=== PATIENT | female | born 1975 | race Two or more races ===

== ENCOUNTER 2016-04-21 16:48 | Emergency (ER) | payer SELFPAY ==
[2015-01-02 21:34] VITALS: BP 130/74
== END 2016-04-21 19:10 | disposition left against medical advice (07) ==
LOC: ER 16:48
DX: R10.9 Unspecified abdominal pain (principal); Z53.21 Procedure and treatment not carried out due to patient leaving prior to being seen by health care provider

== ENCOUNTER 2016-05-03 14:03 | Emergency (ER) | payer SELFPAY ==
[~2016-05-03] VITALS: Ht 152.4 cm; Wt 117.9 kg
[2016-05-03 14:05] VITALS: BP 147/87
[2016-05-03] MEDS ORDERED: D-ME118S2 PO (14:37)
[2016-05-03] MEDS ORDERED: PROAIR HFA8.5 GM INH (14:37)
--- NOTE | 2016-05-03 14:37 | PHYS DOC ---
Past Medical History Past Medical History: No Pertinent History Past Surgical History: No Surgical History Alcohol Use: None Drug Use: None Adult General Chief Complaint Chief Complaint: COUGH HPI HPI Patient is a 41 year old female presents emergency room with complaints of a harsh, nonproductive cough and nasal irritation for approximately one week. Patient does not have any history of cardiopulmonary disease. She has not been on antibiotics, hospitalization or foreign travel within the last 90 days. There 's been no reported ill contacts with similar symptoms. Patient denies fevers or chills. Patient denies myalgias or arthralgias. Review of Systems Review of Systems Constitutional: Denies fever or chills [] Eyes: Denies change in visual acuity, redness, or eye pain [] HENT: Denies nasal congestion or sore throat [] Respiratory: Denies cough or shortness of breath [] Cardiovascular: No additional information not addressed in HPI [] GI: Denies abdominal pain, nausea, vomiting, bloody stools or diarrhea [] : Denies dysuria or hematuria [] Musculoskeletal: Denies back pain or joint pain [] Integument: Denies rash or skin lesions [] Neurologic: Denies headache, focal weakness or sensory changes [] Endocrine: Denies polyuria or polydipsia [] Allergies Allergies Allergies Coded Allergies Type Severity Reaction Last Updated Verified No Known Drug Allergies 01/02/15 No Physical Exam Physical Exam Constitutional: Well developed, well nourished, no acute distress, non-toxic appearance. [] HENT: Normocephalic, atraumatic, bilateral external ears normal, oropharynx moist, no oral exudates, scant amount of clear rhinorrhea bilaterally. There is no hot potato speech or trismus. Posterior oropharynx is normal in appearance. Eyes: PERRLA, EOMI, conjunctiva normal, no discharge. [] Neck: Normal range of motion, no tenderness, supple, no stridor. There is no meningismus. There is bilateral anterior and posterior cervical lymphadenopathy. Cardiovascular:Heart rate regular rhythm, no murmur [] Lungs & Thorax: Bilateral breath sounds clear to auscultation [] Abdomen: Bowel sounds normal, soft, no tenderness, no masses, no pulsatile masses. [] Skin: Warm, dry, no erythema, no rash. Back: No tenderness, no CVA tenderness. [] Extremities: No tenderness, no cyanosis, no clubbing, ROM intact, no edema. [] Neurologic: Alert and oriented X 3, normal motor function, normal sensory function, no focal deficits noted. [] Psychologic: Affect normal, judgement normal, mood normal. [] Current Patient Data Vital Signs Vital Signs Date Time Temp Pulse Resp B/P Pulse Ox O2 Delivery O2 Flow Rate FiO2 05/03/16 14:05 98.0 87 18 95 Room Air 98.0 EKG EKG [] Radiology/Procedures Radiology/Procedures [] Course & Med Decision Making Course & Med Decision Making Pertinent Labs and Imaging studies reviewed. (See chart for details) [] Dragon Disclaimer Dragon Disclaimer This electronic medical record was generated, in whole or in part, using a voice recognition dictation system. Departure Departure Impression: Primary Impression: Upper respiratory infection Disposition: HOME, SELF-CARE Condition: GOOD Referrals: NO PCP (PCP) Patient Instructions: Upper Respiratory Infection, Adult, [id number] Additional Instructions: 1. Take the medications prescribed. 2. Review the discharge instructions for self-care and reasons to return the emergency department. 3. Use the pamphlet provided for assistance in finding a primary care doctor to address your medical concerns. Scripts Albuterol Sulfate (Proair Hfa Inhaler)8.5 Gm Hfa.aer.ad1 Puff INH PRN Q6HRS PRN SHORTNESS OF BREATH #1 INHALER Ref 0 Prov:SOBEIDA MARCIAL 05/03/16 D-Methorphan Hb/Prometh Hcl (Promethazine-Dm Syrup)118 Ml Syrup5 Ml PO PRN Q6HRS COUGH #120 ML Prov:SOBEIDA MARCIAL 05/03/16 SOBEIDA MARCIAL May 03, 2016 14:37
== END 2016-05-03 14:45 | disposition home or self-care (01) ==
LOC: ER 14:03
DX: J06.9 Acute upper respiratory infection, unspecified (principal)
CPT/HCPCS: 99283

== ENCOUNTER 2017-07-10 14:38 | Emergency (ER) | payer SELFPAY ==
[2017-07-10 15:15] LABS: URINE HCG POC HCG NEGATIVE (Negative)
[2017-07-10 15:16] LABS: ADD MAN DIFF? NO
[2017-07-10 15:26] LABS: BASO % 1 % (0-3); EOS # 0.2 x10^3/uL (0.0-0.7); EOS % 3 % (0-3); HEMATOCRIT 40.2 % (36.0-47.0); LYMPH # 2.3 x10^3/uL (1.0-4.8); LYMPH % 31 % (24-48); MEAN CORPUSCULAR HEMOGLOBIN 28 pg (25-35); MEAN CORPUSCULAR HGB CONC 32 g/dL (31-37); MEAN CORPUSCULAR VOLUME 85 fL (79-100); MONO # 0.3 x10^3/uL (0.0-1.1); MONO % 4 % (0-9); NEUT # 4.5 x10^3uL (1.8-7.7); NEUT % 61 % (31-73); PLATELET COUNT 349 x10^3/uL (140-400); RED BLOOD COUNT 4.73 x10^6/uL (3.50-5.40); RED CELL DISTRIBUTION WIDTH 13.9 % (11.5-14.5); WHITE BLOOD COUNT 7.4 x10^3/uL (4.0-11.0)
[2017-07-10 15:34] LABS: ANION GAP 11 (6-14); BLOOD UREA NITROGEN 10 mg/dL (7-20); CALCIUM 8.5 mg/dL (8.5-10.1); CARBON DIOXIDE 26 mmol/L (21-32); CHLORIDE 105 mmol/L (98-107); CREATININE 0.8 mg/dL (0.6-1.0); GLUCOSE 130 mg/dL (70-99); POTASSIUM 3.5 mmol/L (3.5-5.1); SODIUM 142 mmol/L (136-145)
[2017-07-10 15:40] LABS: ALBUMIN 3.2 g/dL (3.4-5.0); ALK PHOS 58 U/L (46-116); ALT (SGPT) 24 U/L (14-59); AST (SGOT) 20 U/L (15-37); DIRECT BILIRUBIN < 0.1 mg/dL (0.0-0.2); LIPASE 109 U/L (73-393); TOTAL BILIRUBIN 0.4 mg/dL (0.2-1.0); TOTAL PROTEIN 7.6 g/dL (6.4-8.2)
[2017-07-10 15:43] LABS: D-DIMER < 0.27 ug/mlFEU (0.00-0.50); TROPONINI < 0.017 ng/mL (0.000-0.055)
[2017-07-10 15:50] LABS: INR 1.1 (0.8-1.1); PARTIAL THROMBOPLASTIN TIME 30 SEC (24-38); PROTHROMBIN TIME PATIENT 13.4 SEC (11.7-14.0)
[2017-07-10 17:46] LABS: TROPONINI < 0.017 ng/mL (0.000-0.055)
== END 2017-07-10 18:30 | disposition home or self-care (01) ==
LOC: ER 14:38
DX: R07.89 Other chest pain (principal)
CPT/HCPCS: 36415; 71045; 80048; 80076; 81025; 83690; 84484; 85025; 85379; 85610; 85730; 93005; 99285-25

== ENCOUNTER 2018-07-19 12:38 | Emergency (ER) | payer SELFPAY ==
[2017-07-10 17:00] VITALS: BP 140/90
[~2018-07-19 12:38] MED LIST: ALBU2.5V8 INH; ASPI-482 PO; D-ME118S2 PO
== END 2018-07-19 13:51 | disposition left against medical advice (07) ==
LOC: ER 12:38
DX: Z53.21 Procedure and treatment not carried out due to patient leaving prior to being seen by health care provider (principal)

== ENCOUNTER 2018-08-28 09:51 | Emergency (ER) | payer SELFPAY ==
[~2018-08-28] VITALS: Ht 167.6 cm; Wt 90.7 kg
[2018-08-28 10:07] VITALS: BP 139/82
--- NOTE | 2018-08-28 10:40 | RAD ---
Two-view chest dated 08/28/2018. Comparison made to 07/10/2017. Clinical data indication: Cough and chest pain. FINDINGS:. PA and lateral views the chest were obtained. Heart and mediastinal contours within normal limits. Lungs are clear. No consolidation or pleural effusion. No pneumothorax. IMPRESSION: No acute radiographic abnormality. Electronically signed by: Manav Enriquez MD (08/28/2018 10:37 AM) [id number]
[2018-08-28] MEDS ORDERED: PRED50TA PO (10:49)
[2018-08-28] MEDS ORDERED: PROVENTIL HFA6.7 G2 INH (10:49)
[2018-08-28] MEDS ORDERED: BENZ100C PO (10:49)
--- NOTE | 2018-08-28 10:50 | PHYS DOC ---
Past Medical History Past Medical History: No Pertinent History (EDWARD DE LEÓN APRN) Past Surgical History: No Surgical History (EDWARD DE LEÓN APRN) Alcohol Use: None Drug Use: None (EDWARD DE LEÓN APRN) Adult General Chief Complaint Chief Complaint: COUGH HPI HPI Patient is a 43 year old female who presents with a productive cough for 2 weeks. Denies any fever. Denies any nasal congestion. Patient is Chukese speaking and interpretation is provided by the family member (EDWARD DE LEÓN APRN) Review of Systems Review of Systems Constitutional: Denies fever or chills [] Eyes: Denies change in visual acuity, redness, or eye pain [] HENT: Denies nasal congestion or sore throat [] Respiratory: Reports cough, denies shortness of breath [] Cardiovascular: No additional information not addressed in HPI [] GI: Denies abdominal pain, nausea, vomiting, bloody stools or diarrhea [] : Denies dysuria or hematuria [] Musculoskeletal: Denies back pain or joint pain [] Integument: Denies rash or skin lesions [] Neurologic: Denies headache, focal weakness or sensory changes [] All other systems were reviewed and found to be within normal limits, except as documented in this note. (MIEDWARD VALDEZ APRN) Allergies Allergies Allergies Coded Allergies Type Severity Reaction Last Updated Verified No Known Drug Allergies 01/02/15 No (CARLOS SEVILLA DO) Physical Exam Physical Exam Constitutional: Well developed, well nourished, no acute distress, non-toxic appearance. [] HENT: Normocephalic, atraumatic, bilateral external ears normal, oropharynx moist, no oral exudates, nose normal. [] Eyes: PERRLA, EOMI, conjunctiva normal, no discharge. [] Neck: Normal range of motion, no tenderness, supple, no stridor. [] Cardiovascular:Heart rate regular rhythm, no murmur [] Lungs & Thorax: Bilateral breath sounds clear to auscultation [] Abdomen: Bowel sounds normal, soft, no tenderness, no masses, no pulsatile masses. [] Skin: Warm, dry, no erythema, no rash. [] Back: No tenderness, no CVA tenderness. [] Extremities: No tenderness, no cyanosis, no clubbing, ROM intact, no edema. [] Neurologic: Alert and oriented X 3, normal motor function, normal sensory function, no focal deficits noted. [] Psychologic: Affect normal, judgement normal, mood normal. [] (EDWARD DE LEÓN APRN) Current Patient Data Vital Signs Vital Signs Date Time Temp Pulse Resp B/P (MAP) Pulse Ox O2 Delivery O2 Flow Rate FiO2 08/28/18 10:07 97.8 74 14 139/82 (101) 94 Room Air 97.8 (CARLOS SEVILLA DO) EKG EKG [] (EDWARD DE LEÓN APRN) Radiology/Procedures Radiology/Procedures []PROCEDURE: CHEST PA & LATERAL Two-view chest dated 08/28/2018. Comparison made to 07/10/2017. Clinical data indication: Cough and chest pain. FINDINGS:. PA and lateral views the chest were obtained. Heart and mediastinal contours within normal limits. Lungs are clear. No consolidation or pleural effusion. No pneumothorax. IMPRESSION: No acute radiographic abnormality. Electronically signed by: Carlos Enriquez MD (08/28/2018 10:37 AM) [id number] DICTATED and SIGNED BY: CARLOS ENRIQUEZ MD DATE: 08/28/18 1037 (EDWARD DE LEÓN APRN) Course & Med Decision Making Course & Med Decision Making Pertinent Labs and Imaging studies reviewed. (See chart for details) This is a 43-year-old female patient presenting to the ED today with cough for 2 weeks. Chest x-ray is negative for any acute findings as interpreted by radiologist. Symptoms are likely viral. Patient was discharged with albuterol inhaler prednisone and Tessalon Perles. Instructed to follow-up with her own PCP in 1-2 weeks. (EDWARD DE LEÓN APRN) Dragon Disclaimer Dragon Disclaimer This electronic medical record was generated, in whole or in part, using a voice recognition dictation system. (EDWARD DE LEÓN APRN) Departure Departure Impression: Primary Impression: Acute viral bronchitis Disposition: 01 HOME, SELF-CARE Condition: STABLE Referrals: NO PCP (PCP) Follow-up with your doctor in 1-2 weeks Patient Instructions: Acute Bronchitis, [id number] Additional Instructions: You were evaluated in the emergency room with symptoms consistent of viral bronchitis put you on medications, take them as prescribed. Please follow-up with your own doctor in 1-2 weeks. Scripts Prednisone (PREDNISONE) 50 Mg Tablet 1 TAB PO DAILY, #5 TAB Prov: EDWARD DE LEÓN APRN 08/28/18 Benzonatate (TESSALON PERLE) 100 Mg Capsule 1 CAP PO TID, #30 CAP Prov: EDWARD DE LEÓN APRN 08/28/18 Albuterol Sulfate (Proventil Hfa) 6.7 Gm Hfa.aer.ad 1 PUFF INH PRN Q6HRS PRN for SHORTNESS OF BREATH, #1 INHALER Prov: EDWARD DE LEÓN APRN 08/28/18 Attending Signature Attending Signature I have reviewed the PA/ASBESTOS SHINGLE ROOFER's note and plan of care. I was available for consultation as needed during the patient's visit in the emergency department. I agree with the clinical impression, plan, and disposition. (CARLOS SEVILLA DO) EDWARD DE LEÓN APRN August 28, 2018 10:50 CARLOS SEVILLA DO August 29, 2018 13:01
== END 2018-08-28 10:57 | disposition home or self-care (01) ==
LOC: ER 09:51
DX: J20.8 Acute bronchitis due to other specified organisms (principal)
CPT/HCPCS: 71046; 99284

== ENCOUNTER 2019-05-05 22:06 | Emergency (ER) | payer SELFPAY ==
[~2019-05-05] VITALS: Ht 157.5 cm; Wt 86.0 kg
[~2019-05-05 22:06] MED LIST changes: +BENZ100C PO; -D-ME118S2 PO; +PRED50TA PO; +PROM118S9 PO; +PROVENTIL HFA6.7 G2 INH
[2019-05-05 22:33] VITALS: BP 151/89
--- NOTE | 2019-05-05 23:16 | PHYS DOC ---
Past Medical History Past Medical History: No Pertinent History Past Surgical History: No Surgical History Alcohol Use: None Drug Use: None Adult General Chief Complaint Chief Complaint: FLU SYMPTOM HPI HPI Patient is a 44 year old female who only speake Algerian, accompanied by an Guyanese speaking family member who presents to the emergency department with complaints of fever, body aches, fatigue, cough, and a sore throat for the last 3 days. Patient states she has been taking [id number] fever and flu medications with no relief of her symptoms. She denies any shortness of breath, wheezing, nausea, vomiting, diarrhea, or abdominal pain. She currently rates her pain 8 out of 10 on the pain scale, she denies any alleviating factors. All other ROS is neg unless otherwise noted in HPI. Review of Systems Review of Systems See Above Allergies Allergies Allergies Coded Allergies Type Severity Reaction Last Updated Verified No Known Drug Allergies 01/02/15 No Physical Exam Physical Exam See Above Constitutional: Well developed, well nourished, no acute distress, ill ap pearance, obese HENT: Normocephalic, atraumatic, bilateral external ears normal, bilateral TMs normal, elbow erythema posterior pharynx, oropharynx moist, nose congested with erythema and edema of the nasal turbinates bilaterally Eyes: PERRLA, conjunctiva injected bilaterally, no discharge. [] Neck: Normal range of motion, no stridor. [] Cardiovascular:Heart rate regular rhythm, no murmur [] Lungs & Thorax: Bilateral breath sounds clear to auscultation, Respirations even and unlabored, no retractions, no respiratory distress Skin: Warm, dry, no erythema, no rash. [] Back: No tenderness Extremities: No cyanosis, ROM intact Neurologic: Alert and oriented X 3, no focal deficits noted. [] Psychologic: Affect normal, judgement normal, mood normal. Current Patient Data Vital Signs Vital Signs Date Time Temp Pulse Resp B/P (MAP) Pulse Ox O2 Delivery O2 Flow Rate FiO2 05/05/19 22:33 98.4 89 20 151/89 (109) 97 Room Air 98.4 EKG EKG [] Radiology/Procedures Radiology/Procedures [] Course & Med Decision Making Course & Med Decision Making Pertinent Labs and Imaging studies reviewed. (See chart for details) Patient is a 44-year-old female who presented with flulike symptoms. Her vital signs were stable, she is afebrile with a normal oxygen saturation on arrival. Physical exam revealed clear lung sounds, patient appears to have influenza and a URI. A medical screening exam was performed, patient was found to have no emergent medical condition. The plan of care would've included influenza instructions. However, the patient eloped after talking with registration. [] [] Dragon Disclaimer Dragon Disclaimer This electronic medical record was generated, in whole or in part, using a voice recognition dictation system. Departure Departure Impression: Primary Impression: Encounter for medical screening examination Disposition: HOME, SELF-CARE Condition: STABLE (pt eloped after speaking with registrar) Referrals: NO PCP (PCP) MARVIN LUI TRAFFIC LIEUTENANT May 05, 2019 23:16
== END 2019-05-05 22:54 | disposition home or self-care (01) ==
LOC: ER 22:06
DX: J02.9 Acute pharyngitis, unspecified (principal); R50.9 Fever, unspecified; R05 Cough; L53.9 Erythematous condition, unspecified; R60.9 Edema, unspecified
CPT/HCPCS: 99281